=== PATIENT | female | born 1960 | race Caucasian/White ===

== ENCOUNTER → 2018-04-09 | Day surgery (SDC) | payer OTHER ==
--- NOTE | 2018-04-10 14:43 | PATH ---
Surgical Pathology Report Patient Name: BRANDI MCKEON [facility]. Rec. #: [id number] /Age/Gender: 1960 (Age: 58) / F Account: [id number] Location: [facility] Taken: 04/09/2018 Received: 04/09/2018 Reported: 04/10/2018 Physicians: Praveena Tavarez M.D. Specimen(s) Received A: RIGHT BREAST SPECIMEN WITH CALCIFICATIONS B: RIGHT BREAST SPECIMEN WITHOUT CALCIFICATIONS Clinical History Nonpalpable lesion Mammographic findings: Microcalcification, suspicious Final Diagnosis A. 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 B. 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 Electronically Signed Sonja Vasquez M.D. Gross Description A. Received in formalin labeled "right breast with calcification," is a 2.5 x 2.0 x 0.3 cm aggregate of multiple zamorano-yellow, irregular to cylindrical portions of fibroadipose tissue. The formalin is filtered and the specimen is entirely submitted in one cassette. B. Received in formalin labeled "right breast without calcifications," is a 2.3 x 1.6 x 0.3 cm aggregate of multiple zamorano-yellow, irregular to cylindrical portions of fibroadipose tissue. The formalin is filtered and the specimen is entirely submitted in one cassette. Time to formalin fixation: 5 minutes Total formalin fixation time: Approximately 6 hours. 04/09/2018 [facility]04/09/2018
== END | disposition home or self-care (01) ==
LOC: FMAMMOTONE 11:48
PROVIDERS: ATTEND Surgery
PROC: 0HBT3ZX Excision of Right Breast, Percutaneous Approach, Diagnostic (ICD-10-PCS; principal; 2018-04-09)
DX: N60.11 Diffuse cystic mastopathy of right breast (principal); N60.81 Other benign mammary dysplasias of right breast; N64.89 Other specified disorders of breast; R92.1 Mammographic calcification found on diagnostic imaging of breast
CPT/HCPCS: 19081; 87899; 88305-TC; A4648